=== PATIENT | female | born 1935 | race Caucasian/White ===

== ENCOUNTER 2023-01-11 13:11 | Outpatient (CLI) | payer MEDICARE, BC | END 2023-01-11 13:12 | disposition home or self-care (01) | LOC: CSHULT 13:11 | PROVIDERS: ATTEND Internal Medicine | DX: N18.32 Chronic kidney disease, stage 3b (principal) | CPT/HCPCS: 76770 ==

== ENCOUNTER 2023-01-11 14:19 | Outpatient (CLI) | payer MEDICARE, BC | END 2023-01-11 14:20 | disposition home or self-care (01) | LOC: CSHMAMMO 14:19 | PROVIDERS: ATTEND Internal Medicine | DX: M81.0 Age-related osteoporosis without current pathological fracture (principal); M85.852 Other specified disorders of bone density and structure, left thigh | CPT/HCPCS: 77080 ==

== ENCOUNTER 2023-04-10 16:34 | Emergency (ER) | payer OTHER, MEDICARE, BC ==
[2023-04-10] MEDS ORDERED: Boostrix 0.5 ML (Tdap) VIAL (>/=7 yrs of age) ONE (17:45)
== END 2023-04-10 19:40 | disposition home or self-care (01) ==
LOC: CSHERS 16:34
DX: S09.90XA Unspecified injury of head, initial encounter (principal); W01.198A Fall on same level from slipping, tripping and stumbling with subsequent striking against other object, initial encounter; Z23 Encounter for immunization
CPT/HCPCS: 70450; 90471; 90715